=== PATIENT | male | born 1940 | race Caucasian/White ===

== ENCOUNTER 2018-02-01 20:20 | Emergency (ER) | payer OTHER ==
[2018-02-01] MEDS ORDERED: NS 1,000 ML IV ONE (20:54)
--- NOTE | 2018-02-01 20:54 | EDPHY ---
H & P Time Seen by Provider: 02/01/18 20:26 HPI/ROS: HPI Probable knee infection. Knee pain. 77-year-old male by ambulance with his . This patient underwent a total knee replacement through [facility] 4 weeks ago. Surgery was performed by a Dr. Levin. He reports that for the last 24 hr he has had significantly worse pain involving the right knee. He states that any movement exacerbates the pain any is unable to bear weight on the right knee. He reports that last night he fell tripping while on his walker and hyperflexed the right knee. Today he states it is been very warm, red and more painful. He denies fever but he states he has had chills. ROS: Constitutional: No fever, as above. No weakness. Eyes: No discharge. No changes in vision. ENT: No sore throat. No nasal congestion or rhinorrhea. Respiratory: No cough. No shortness of breath. Cardiac: No chest pain, no palpitations. Gastrointestinal: No abdominal pain, no vomiting, no diarrhea. Genitourinary: No hematuria. No dysuria or increased frequency with urination. Musculoskeletal: No back pain. No neck pain. As above. Skin: No rashes. Neurological: No headache. No focal weakness or altered sensation. Past medical history: Right total knee replacement. Prediabetic. Hypertension. Social history: Nonsmoker. Here with his . No alcohol. Physical Exam: General Appearance: Alert, no distress. This patient is responding to questions appropriately and in full sentences. This patient appears well- hydrated and well-nourished. Eyes: Pupils equal and round no pallor or injection. No lid edema, erythema or injection. Right knee exam: Surgical scar is midline and clean dry and intact/well- healed. He has diffuse swelling with a large effusion as well as diffuse erythema over the anterior aspect of the proximal through distal knee. Pain is induced with any passive or active flexion or extension or axial compression. The right lower extremity is otherwise neurovascularly intact. Respiratory: There are no retractions, lungs are clear to auscultation with good air movement bilaterally. Cardiovascular: Regular rate and rhythm. No murmur. Gastrointestinal: Abdomen is soft and nontender, no masses, bowel sounds normal. No focal tenderness at McBurney's point. No Butler sign. Neurological: Motor sensory function is grossly intact. Cranial nerves are normal. Skin: Warm and dry, no rashes. Musculoskeletal: Neck is supple and nontender. Extremities are symmetrical. All joints range without pain or impingement. Psychiatric: No agitation. No depression. Database: EKG: Imaging: Right knee x-ray series: Hardware appears intact. Negative for fracture, subluxation, dislocation. Interpreted by me. Procedures: Emergency department course: Vital signs reviewed. IV was placed. He was started on IV normal saline with 1 L to be given over the next hour. Olivia KAROLYN paged. 9:00 p.m., spoke with [facility]. They will arrange transfer and transport to [facility] emergency department. They have an ambulance nearby and the transfer will occur quickly. Accepting physician is Dr. Butler orthopedic surgeon on-call. Blood cultures, arthrocentesis, antimicrobial therapy and synovial fluid workup deferred to [facility] team. Dr. Butler in agreement. Patient's remaining emergency department course under my care uneventful. Patient transferred in stable condition at 9:30 p.m.. Differential Diagnosis: The differential diagnosis on this patient includes but is not limited to right septic knee joint. This represents a partial list of diagnoses considered. These considerations are based on history, physical exam, past history, reassessment and diagnostic testing. Smoking Status: Former smoker Constitutional: Initial Vital Signs Temperature (C) 37.4 C 02/01/18 20:28 Heart Rate 126 H 02/01/18 20:28 Respiratory Rate 20 02/01/18 20:28 Blood Pressure 156/94 H 02/01/18 20:28 O2 Sat (%) 94 02/01/18 20:28 O2 Delivery Mode Room Air Allergies/Adverse Reactions: No Known Allergies Allergy (Unverified 08/27/09 21:52) Home Medications: Medication Instructions Recorded Atenolol [Tenormin 25 mg (RX)] mg PO DAILY 03/08/12 Hydrochlorothiazide 12.5 mg PO DAILY 03/08/12 [Hydrochlorothiazide 12.5 MG (RX)] Meclizine HCl [Meclizine HCl 25 mg 25 mg PO . Q 6 HRS PRN #15 tab 03/08/12 (RX,OTC)] Omeprazole [Prilosec 10 mg] 10 mg PO DAILY 03/08/12 Medical Decision Making - Diagnostics Imaging Results: Imaging Impressions Knee X-Ray 02/01/18 20:54 Impression: Status post tricomponent knee arthroplasty (which is anatomically- aligned), with prepatellar edema and a joint effusion. - Data Points Laboratory Results: Laboratory Results 02/01/18 20:15 18 20:15 18 02/01/18 20:15 20:15 WBC 14.78 10^3/uL H 10^3/uL (3.80-9.50) RBC 4.72 10^6/uL 10^6/uL (4.40-6.38) Hgb 13.3 g/dL L g/dL (13.7-17.5) Hct 41.7 % % (40.0-51.0) MCV 88.3 fL fL (81.5-99.8) MCH 28.2 pg pg (27.9-34.1) MCHC 31.9 g/dL L g/dL (32.4-36.7) RDW 16.7 % H % (11.5-15.2) Plt Count 238 10^3/uL 10^3/uL (150-400) MPV 9.5 fL fL (8.7-11.7) Neut % (Auto) 82.0 % H % (39.3-74.2) Lymph % (Auto) 9.2 % L % (15.0-45.0) [place] % (Auto) 7.6 % % (4.5-13.0) Eos % (Auto) 0.6 % % (0.6-7.6) Baso % (Auto) 0.3 % % (0.3-1.7) Nucleat RBC Rel Count 0.0 % % (0.0-0.2) Absolute Neuts (auto) 12.11 10^3/uL H 10^3/uL (1.70-6.50) Absolute Lymphs (auto) 1.36 10^3/uL 10^3/uL (1.00-3.00) Absolute Monos (auto) 1.12 10^3/uL H 10^3/uL (0.30-0.80) Absolute Eos (auto) 0.09 10^3/uL 10^3/uL (0.03-0.40) Absolute Basos (auto) 0.05 10^3/uL 10^3/uL (0.02-0.10) Absolute Nucleated RBC 0.00 10^3/uL 10^3/uL (0-0.01) Immature Gran % 0.3 % % (0.0-1.1) Immature Gran # 0.05 10^3/uL 10^3/uL (0.00-0.10) Sodium 136 mEq/L mEq/L (135-145) Potassium 4.1 mEq/L mEq/L (3.5-5.2) Chloride 96 mEq/L L mEq/L (97-110) Carbon Dioxide 24 mEq/l mEq/l (22-31) Anion Gap 16 mEq/L mEq/L (8-16) BUN 17 mg/dL mg/dL (7-23) Creatinine 1.1 mg/dL mg/dL (0.7-1.3) Estimated GFR > 60 Glucose 120 mg/dL H mg/dL (70-100) Calcium 9.7 mg/dL mg/dL (8.5-10.4) Medications Given: Discontinued Medications Sodium Chloride (Ns) 1,000 mls @ 0 mls/hr IV ONCE ONE; Wide Open PRN Reason: Protocol Stop: 02/01/18 20:55 Last Admin: 02/01/18 21:12 Dose: 1,000 mls Departure - Departure Disposition: Acute Care Hospital Not [facility] 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
[2018-02-01 20:56] LABS: PLATELET COUNT 238 10^3/uL (150-400)
[2018-02-01 21:29] VITALS: BP 142/72
== END 2018-02-01 21:24 | disposition short-term general hospital (02) ==
LOC: EDUNIT#
DX: T84.092A Other mechanical complication of internal right knee prosthesis, initial encounter (principal); I10 Essential (primary) hypertension; Z87.891 Personal history of nicotine dependence; Y82.9 Unspecified medical devices associated with adverse incidents